=== PATIENT | female | born 1970 | race Caucasian/White ===

== ENCOUNTER 2016-05-21 09:30 | Emergency (ER) | payer BC ==
[2016-05-21] MEDS ORDERED: Ondansetron INJ* 2 MG/ML VIAL IV ONE ×2 (09:51→10:54)
[2016-05-21 10:10] VITALS: BP 116/70
--- NOTE | 2016-05-21 10:26 | RAD ---
Indication: Onset of nausea and vomiting and dizziness. CT of the brain was performed without IV contrast. Ventricular structures are midline. No midline shift is noted. The extra-axial spaces are unremarkable. There is no evidence of intracranial mass or hemorrhage. No other high or low density lesions are identified. Mastoid air cells and paranasal sinuses are unremarkable. The bony calvaria are unremarkable. When compared to previous exam of April 30, 2011 no significant change is noted. IMPRESSION: No intracranial mass or hemorrhage is noted. Findings discussed with Dr. Alvarado at 10:22 AM.
[2016-05-21] MEDS ORDERED: NS 0.9% 1000 ML* 1,000 ML IV ONE (10:54)
--- NOTE | 2016-05-21 11:41 | ED ---
Neurological HPI - HPI Summary HPI Summary: Patient arrives with with CC of left sided weakness after a near syncopal episode this morning. Patient states about 1 hour ago she began to feel light headed and dizzy and needed to sit down. She then noticed her left side was weak, she was not speaking normally and began to feel nauseous. notes to 1x episode of vomiting on the way to the ED. Denies SMITH. Denies visual changes. Patient states she is very weak and tired. Nothing like this has happened to her before. Denies drug and alcohol use. Denies chance of or health problems. Denies syncopal episode. Upon arrival, evelia castellano was called and neuro to evaluate. - History of Current Complaint Chief Complaint: EDWeakness Stated Complaint: VOMITING, LEFT SIDE WEEKNESS , Time Seen by Provider: 05/21/16 09:35 Hx Obtained From: Patient Onset/Duration: Sudden Onset Timing: Constant Onset Severity: Moderate Current Severity: Moderate Neurological Deficit Location: [facility] Character: Lightheaded, Weak, Dizzy, Motor Weakness - left sided weakness in upper and lower extremity, Confusion, Lethargy Episode Lasting: Seconds/Minutes - 20 Syncope Context: Loss of Consciousness: No Frequency: Episodes x___ - 1, Episodes Lasting ____ (in Mins/Days/Weeks/Years) - 30 minutes Aggravating: Nothing Alleviating: Nothing Associated Signs and Symptoms: Positive: Unsteady Gait, Weakness, Dizziness, Decreased Level of Consciousness, Impaired Speech, Lightheadness, Nausea/ Vomiting TPA Considered: No - Allergy/Home Medications Allergies/Adverse Reactions: Allergies Allergy/AdvReac Type Severity Reaction Status Date / Time Acetaminophen [From Vicodin] Allergy Nausea And Verified 05/21/16 09:42 Vomiting Cefuroxime [From Ceftin] Allergy Anaphylatic Verified 05/21/16 09:42 Shock Hydrocodone [From Vicodin] Allergy Nausea And Verified 05/21/16 09:42 Vomiting Morphine Allergy Wheezing Verified 05/21/16 09:42 enviromental Allergy Eyes Uncoded 05/21/16 09:42 Itchy/Swollen/Red/Watery vicodin Allergy Anaphylatic Uncoded 05/21/16 09:42 Shock PMH/Surg Hx/FS Hx/Imm Hx Previously Healthy: Yes Endocrine/Hematology History: Reports: Other Endocrine/Hematological Disorders - Opsoclonus Psychiatric History: Reports: Hx Anxiety - Cancer History Hx Chemotherapy: No Hx Radiation Therapy: No - Surgical History Surgery Procedure, Year, and Place: csection x 2 Infectious Disease History: No Infectious Disease History: Denies: Traveled Outside the [place] in Last 30 Days - Family History Known Family History: Negative: Cardiac Disease - Social History Occupation: Employed Full-time Lives: With Family Alcohol Use: None Substance Use Type: Reports: None Hx Tobacco Use: No Smoking Status (MU): Never Smoked Tobacco Review of Systems Positive: Fatigue Eyes: Negative Cardiovascular: Negative Respiratory: Negative Positive: Vomiting, Nausea Positive: no symptoms reported, see HPI Musculoskeletal: Negative Skin: Negative Positive: Weakness, Syncope - near syncope/ weakness in LLE Psychological: Normal All Other Systems Reviewed And Are Negative: Yes Physical Exam Triage Information Reviewed: Yes Vital Signs On Initial Exam: Initial Vitals Temp Pulse Resp BP Pulse Ox 97.4 F 67 8 110/70 98 05/21/16 09:37 05/21/16 09:37 05/21/16 09:37 05/21/16 09:37 05/21/16 09:37 Vital Signs Reviewed: Yes Appearance: Positive: Ill-Appearing, Obese Skin: Positive: Warm, Skin Color Reflects Adequate Perfusion Head/Face: Positive: Normal Head/Face Inspection Eyes: Positive: JUDY, Conjunctiva Clear Neck: Positive: Supple, No Lymphadenopathy Respiratory/Lung Sounds: Positive: Clear to Auscultation, Breath Sounds Present Cardiovascular: Positive: Normal, RRR Abdomen Description: Positive: Nontender Musculoskeletal: Positive: Strength/ROM Intact Neurological: Positive: Alert, Oriented to Person Place, Time, Reflexes Intact, Slurred Speech, Heel to Toe - abnormal d/t LLE weakness, Unable to Assess Gait, Facial Symmetry Psychiatric: Positive: Normal AVPU Assessment: Alert - [place] Coma Scale Coma Scale Total: 15 Diagnostics - Vital Signs Vital Signs Temp Pulse Resp BP Pulse Ox 05/21/16 11:12 66 19 99 05/21/16 10:00 70 14 116/70 97 05/21/16 09:45 68 17 98 05/21/16 09:44 121/57 05/21/16 09:37 97.4 F 67 8 110/70 98 - Laboratory Result Diagrams: 05/21/16 11:43 05/21/16 11:43 Lab Statement: Any lab studies that have been ordered have been reviewed, and results considered in the medical decision making process. 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 Hand: Both Correctly Best Gaze (Only Horizontal Eye Movement): Normal Visual Field Testing: No Visual Loss Facial Paresis-Pt to Smile & Close Eyes or Grimace Symmetry: Minor Paralysis Motor Function - Right Arm: No Drift-Holds 10 Seconds Motor Function - Left Arm: No Effort Against [place] Motor Function - Right Leg: No Drift-Holds 10 Seconds Motor Function - Left Leg: No Effort Against [place] Best Language (Describe Picture, Name Items): Some Loss Course/Dx - Course Course Of Treatment: Evelia castellano called on patient arrival d/t loss of motor function, slurred speech, weakness and confusion. CT brain without: When compared to previous exam of April 30, 2011 no significant change is noted. IMPRESSION: No intracranial mass or hemorrhage is noted. Findings discussed with Dr. Alvarado at 10:[address] Liz to see patient - consult noted completed. Repletion with fluids, zofran. Patient feeling better and strength returned in extremities. Labs WNL. Encouraged patient to follow up with neuro as needed, but this is likely a vasovagal response, hypotension, BPPV, vertigo or anxiety attack, etc. Patient agrees and is OK with plan to discharge with rx zofran as needed. - Differential Dx Differential Diagnoses Neuro: Positive: Benign Paroxysmal Positional Vertigo, Hyperventilation, Hypovolemia, Vasovagal Reaction - Diagnoses Provider Diagnoses: Weakness - Physician Notifications Instructed by Provider To: Will See In ED - Dr Liz to see patient in ED. Discharge - Discharge Plan Condition: Stable Disposition: HOME Prescriptions: Ondansetron ODT TAB* [Zofran 4 MG Odt TAB*] 4 mg PO Q6H PRN #15 tab.odt PRN Reason: Nausea Patient Education Materials: Weakness (ED) Referrals: Jay Sunshine MD [Primary Care Provider] - Dyana Liz MD [Medical Doctor] - Additional Instructions: Take zofran as needed for nausea. Drink plenty of fluids. If symptoms worsen, please come back to ED for further evaluation.
[2016-05-21 11:54] LABS: Hematocrit 41 % (35-47); Hemoglobin 13.9 g/dl (12.0-16.0); Mean Corpuscular HGB Conc 34 g/dl (31-36); Mean Corpuscular Hemoglobin 31 pg (27-31); Mean Corpuscular Volume 93 fL (80-97); Mean Platelet Volume 8 um3 (7.4-10.4); Red Blood Count 4.43 10^6/ul (4.0-5.4); Red Cell Distribution Width 13 % (10.5-15); White Blood Count 8.5 10^3/ul (3.5-10.8)
[2016-05-21 11:57] LABS: Add Diff/Slide Review? Slide Review Added; Comments Flag Yes
[2016-05-21 12:16] LABS: ALT 12 U/L (7-52); AST 14 U/L (13-39); Albumin 3.7 g/dL (3.2-5.2); Alkaline Phosphatase 47 U/L (34-104); Anion Gap 5 mmol/L (2-11); BUN/Creatinine Ratio 11.6 (8-20); Blood Urea Nitrogen 10 mg/dL (6-24); CO2 Carbon Dioxide 25 mmol/L (22-32); Chloride 106 mmol/L (101-111); EGFR African American 92.2 (>60); EGFR Non-African American 71.7 (>60); Globulin 3.4 g/dL (2-4); Glucose 96 mg/dL (70-100); Potassium 4.1 mmol/L (3.5-5.0); Sodium 136 mmol/L (133-145); Total Protein 7.1 g/dL (6.4-8.9)
[2016-05-21 12:33] LABS: Urine Bilirubin Negative (Negative); Urine Glucose Negative (Negative); Urine Nitrite Negative (Negative)
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
[2016-05-21 12:46] LABS: Benzodiazepine Urine Screen None Detected (None Detect)
== END 2016-05-21 14:08 | disposition home or self-care (01) ==
LOC: ED 09:30
DX: R53.1 Weakness (principal); Z88.5 Allergy status to narcotic agent; Z88.6 Allergy status to analgesic agent; G47.00 Insomnia, unspecified
CPT/HCPCS: 36415; 70450; 80053; 80307; 81003; 83605; 84484; 84702; 85025; 85610; 93005; 96360; 96374; 96376; 99283; J2405

== ENCOUNTER → 2019-05-24 06:19 | Day surgery (SDC) | payer BC ==
[~2019-05-24 06:19] MED LIST: Buffered Lidocaine 1% SYRIN* 1 ML/SYRINGE INTRADERM ONE; Lactated Ringers 1000 ML Bag* 1,000 ML IV SCH; Ondansetron INJ* 2 MG/ML VIAL ONE; Propofol* 10 MG/ML 20 ML BTL ONE
[2019-05-24 10:13] VITALS: BP 138/80
== END | disposition home or self-care (01) ==
LOC: OR 06:19
PROVIDERS: ATTEND Internal Medicine Gastroenterology
DX: K22.10 Ulcer of esophagus without bleeding (principal); R13.10 Dysphagia, unspecified; K21.9 Gastro-esophageal reflux disease without esophagitis; E66.01 Morbid (severe) obesity due to excess calories; G47.33 Obstructive sleep apnea (adult) (pediatric); F41.8 Other specified anxiety disorders
CPT/HCPCS: 81025; 87077; 88305; J2405; J2704